=== PATIENT | female | born 1960 | race Caucasian/White ===

== ENCOUNTER 2019-05-03 08:08 | Day surgery (SDC) | payer OTHER ==
[2019-04-30 10:26] VITALS: BMI 24.5
[2019-05-03] MEDS ORDERED: PROPOFOL 20 ML ONE (09:32)
[2019-05-03 10:17] VITALS: TEMP 97.8
[2019-05-03 10:20] VITALS: BP 105/56; PULSE 54
--- NOTE | 2019-05-05 15:15 | PATH ---
Surgical Pathology Report Patient Name: LEXUS AUGUSTINE [facility]. Rec. #: [id number] /Age/Gender: 1960 (Age: 59) / F Account: [id number] Location: [facility] Taken: 05/03/2019 Received: 05/03/2019 Reported: 05/05/2019 Physicians: Matthew Rao M.D. Specimen(s) Received POLYP SPLENIC FLEXURE Clinical History History of polyps Postoperative diagnosis: Colon polyp, few diverticuli Final Diagnosis SPLENIC FLEXURE, POLYP, BIOPSY: TUBULAR ADENOMA. Electronically Signed Gemini James M.D. Gross Description Received in formalin, labeled "biopsy polyp splenic flexure" is a stafford, irregular portion of soft tissue measuring 0.5 cm. in greatest dimension. The specimen is submitted in toto in one cassette. 05/04/201905/04/2019
== END 2019-05-03 10:27 | disposition home or self-care (01) ==
LOC: FASU-ENDO 08:08
PROVIDERS: ATTEND Internal Medicine Gastroenterology
PROC: 0DBL8ZX Excision of Transverse Colon, Via Natural or Artificial Opening Endoscopic, Diagnostic (ICD-10-PCS; principal; 2019-05-03 09:28)
DX: Z86.010 Personal history of colon polyps (principal); D12.3 Benign neoplasm of transverse colon; K57.30 Diverticulosis of large intestine without perforation or abscess without bleeding
CPT/HCPCS: 88305-TC

== ENCOUNTER 2023-08-06 08:59 | Emergency (ER) | payer OTHER, MEDICARE ==
[2023-08-06 09:30] VITALS: BP 129/82; PULSE 64; RESP 18; TEMP 98.7; BMI 24.3
[2023-08-06] MEDS ORDERED: LIDOCAINE HCL 2% (20ML MULTI-DOSE VIAL) ONE (09:39)
[2023-08-06] MEDS ORDERED: DIPHTH,PERTUSS(ACELL),TET 0.5 ML DISP.SYRIN IM ONE (09:40)
[2023-08-06] MEDS: DIPHTH,PERTUSS(ACELL),TET 0.5 ML DISP.SYRIN IM ONE (09:52)
[2023-08-06] MEDS: LIDOCAINE HCL 2% (20ML MULTI-DOSE VIAL) INF ONE (09:54)
== END 2023-08-06 10:54 | disposition home or self-care (01) ==
LOC: FER 08:59
PROC: 0HQFXZZ Repair Right Hand Skin, External Approach (ICD-10-PCS; principal; 2023-08-06)
PROC: 3E0234Z Introduction of Serum, Toxoid and Vaccine into Muscle, Percutaneous Approach (ICD-10-PCS; 2023-08-06)
DX: S61.411A Laceration without foreign body of right hand, initial encounter (principal); S61.214A Laceration without foreign body of right ring finger without damage to nail, initial encounter; W25.XXXA Contact with sharp glass, initial encounter
CPT/HCPCS: 12002-25; 73130-TC-RT-FY; 90471; 90715; 99283-25

== ENCOUNTER 2023-08-15 09:50 | Emergency (ER) | payer OTHER, MEDICARE ==
[2023-08-15 10:04] VITALS: BP 142/78; PULSE 84; RESP 16; TEMP 98; BMI 24.3
== END 2023-08-15 10:20 | disposition home or self-care (01) ==
LOC: FER 09:50
DX: Z48.02 Encounter for removal of sutures (principal)
CPT/HCPCS: 99281-25